=== PATIENT | female | born 1940 | race American Indian/Alaskan Native ===

== ENCOUNTER 2016-12-28 08:52 | Outpatient (CLI) | payer MEDICARE, OTHER ==
--- NOTE | 2016-12-28 10:24 | Ultrasound Report ---
ULTRASOUND ABDOMEN COMPLETE: Technique: Transabdominal ultrasound with color Doppler interrogation. History: abdominal pain. Comparison: No previous ultrasound. CT abdomen and pelvis with contrast dated 11/16/15 was reviewed. A Findings: The liver is normal size, contour and echotexture. The gallbladder dimensions are within normal limits without intraluminal stone, wall thickening, or pericholecystic fluid. The CBD measures 2 mm. The visualized portions of the pancreas including the head and proximal body are within normal limits. The kidneys demonstrate no hydronephrosis or mass. Cortical thickness and echogenicity are within normal limits bilaterally. The spleen and aorta are within normal limits. No aneurysmal dilatation is noted. No ascites. IMPRESSION: Unremarkable abdominal ultrasound.
== END 2016-12-28 08:53 | disposition home or self-care (01) ==
LOC: US 08:52
PROVIDERS: ATTEND Internal Medicine Gastroenterology
DX: R10.9 Unspecified abdominal pain (principal)
CPT/HCPCS: 76700